=== PATIENT | male | born 1965 | race Two or more races ===

== ENCOUNTER 2017-05-26 17:18 | Emergency (ER) | payer OTHER ==
[~2017-05-26] VITALS: Ht 172.7 cm; Wt 72.6 kg
[2017-05-26 17:38] VITALS: BP 119/83
[2017-05-26] MEDS ORDERED: Bacitracin Oint UD TOPIC ONE (18:00)
[2017-05-26] MEDS ORDERED: BACITRACIN-P28.35 GM TP (18:15)
[2017-05-26] MEDS ORDERED: TYLENOL EXTRA500 MG ORAL (18:15)
--- NOTE | 2017-05-26 18:15 | Emergency Room Report ---
History of Present Illness General Chief Complaint: General Complaint Source: Patient Present Illness HPI 32-year-old male presents to the emergency department complaining of 4 out of 10 in severity tenderness to the left cheek bone status post being struck while someone was walking with a piece of wood at his work. Patient denies loss of consciousness he can recall the entire event. Patient denies pain in the eye or changes to his vision. Patient reports that he normally wears glasses. Patient states he has a small cut he denies bleeding and states that he is up-to -date with his tetanus vaccination. Denies CP, Palpitations, LOC, AMS, dizziness , Changes in Vision, Sensation, paresthesias, or a sudden severe headache. Allergies: Coded Allergies: Pork (Verified Allergy, Unknown, 05/26/17) Patient History Past Medical History: see triage record Past Surgical History: none Pertinent Family History: none Immunizations: UTD Reviewed Nursing Documentation: PMH: Agreed, PSxH: Agreed Nursing Documentation-PMH Past Medical History: No Stated History Review of Systems All Other Systems: negative except mentioned in HPI Physical Exam Vital Signs Date Time Temp Pulse Resp B/P (MAP) Pulse Ox O2 Delivery O2 Flow Rate FiO2 05/26/17 17:38 60 16 119/83 98 Room Air 05/26/17 17:38 98.2 98.2 Sp02 EP Interpretation: reviewed, normal General Appearance: no apparent distress, alert, GCS 15, non-toxic Head: normocephalic, other - small superficial abrasion less then 0.5cm in length and erythema of the left cheekbone. Eyes: bilateral eye normal inspection, bilateral eye PERRL, bilateral eye EOMI , bilateral eye visual acuity - 20/200- bilaterally, pt. does not have glasses with him. ENT: hearing grossly normal, normal voice Neck: full range of motion Respiratory: lungs clear, normal breath sounds, speaking full sentences Cardiovascular #1: regular rate, rhythm Musculoskeletal: back normal, gait/station normal, normal range of motion, non- tender Neurologic: alert, oriented x3, responsive, motor strength/tone normal, sensory intact, normal gait, speech normal, grossly normal Psychiatric: judgement/insight normal Skin: normal color, no rash, warm/dry, well hydrated, abrasions - small superficial abrasion less then 0.5cm in length and erythema of the left cheekbone. Medical Decision Making PA Attestation Dr. Mcgrath is my supervising Physician whom patient management has been discussed with. Diagnostic Impression: Primary Impression: Facial abrasion Qualified Codes: S00.81XA - Abrasion of other part of head, initial encounter Additional Impression: Contusion of face Qualified Codes: S00.83XA - Contusion of other part of head, initial encounter ER Course 32-year-old male presents to the emergency department complaining of 4 out of 10 in severity tenderness to the left cheek bone status post being struck while someone was walking with a piece of wood at his work. Patient denies loss of consciousness he can recall the entire event. Patient denies pain in the eye or changes to his vision. Patient reports that he normally wears glasses. Patient states he has a small cut he denies bleeding and states that he is up-to -date with his tetanus vaccination. Denies CP, Palpitations, LOC, AMS, dizziness , Changes in Vision, Sensation, paresthesias, or a sudden severe headache. Ddx considered but are not limited to Fracture, dislocation, contusion, Sprain/ Strain/Spasm, corneal abrasion, eye foreign body. Vital signs: are WNL, pt. is afebrile H&PE are most consistent with left cheekbone contusion and superficial abrasion. no bony ttp. ORDERS: - X-ray's not warranted at this time. ED INTERVENTIONS: -Bacitracin -Tylenol PO DISCHARGE: At this time pt. is stable for d/c to home. Will provide printed patient care instructions, and any necessary prescriptions. Care plan and follow up instructions have been discussed with the patient prior to discharge. Last Vital Signs Date Time Temp Pulse Resp B/P (MAP) Pulse Ox O2 Delivery O2 Flow Rate FiO2 05/26/17 17:38 98.2 60 16 119/83 98 Room Air 98.2 Disposition: HOME, SELF-CARE Condition: Stable Scripts Acetaminophen* (TYLENOL EXTRA STRENGTH*) 500 Mg Tablet 500 MG ORAL Q6H, #20 TAB 0 Refills Prov: Joaquina Gutierrez P.ASamantha 05/26/17 Bacitracin/Polymyxin B Sulfate (BACITRACIN-POLYMYXIN OINTMENT) 28.35 Gm Oint...g. 1 APPLIC TP BID, #28.3 GM Prov: Joaquina Gutierrez.ASamantha 05/26/17 Patient Instructions: Abrasion, [id number]-[id number], Contusion, [id number] Additional Instructions: Take medications as directed. Follow up with a Primary Care Provider in 3-5 days, even if your symptoms have resolved. --Please review list of primary care clinics, if you do not already have a primary care provider Return sooner to ED if new symptoms occur, or current symptoms become worse. - Please note that this Emergency Department Report was dictated using [employer] specialty representative technology software, occasionally this can lead to erroneous entry secondary to interpretation by the dictation equipment. Joaquina Gutierrez May 26, 2017 18:15
[2017-05-26 19:02] VITALS: BP 117/83
== END 2017-05-26 19:02 | disposition home or self-care (01) ==
LOC: EMR 19:02
DX: S00.81XA Abrasion of other part of head, initial encounter (principal); S00.83XA Contusion of other part of head, initial encounter; W22.8XXA Striking against or struck by other objects, initial encounter; Y93.9 Activity, unspecified; Y99.0 Civilian activity done for income or pay; Z91.018 Allergy to other foods
CPT/HCPCS: 99284